=== PATIENT | female | born 1965 | race Caucasian/White ===

== ENCOUNTER → 2017-05-23 | Outpatient (CLI) | payer BC ==
[~2017-05-23] MED LIST: COLACE 100MG C100 MG PO; NORCO 5-325 TA1 EACH PO
== END ==
LOC: KOH-I 08:40
DX: R19.8 Other specified symptoms and signs involving the digestive system and abdomen (principal)
CPT/HCPCS: 74000

== ENCOUNTER → 2020-09-25 | Outpatient (CLI) | payer BC ==
[~2020-09-25] MED LIST changes: +HYDROCODON-ACE1 EAC4 PO; +ZOFRAN ODT 4 MG4 MG PO
== END ==
LOC: KOH-I 11:07
DX: R80.9 Proteinuria, unspecified (principal); N13.30 Unspecified hydronephrosis
CPT/HCPCS: 76775

== ENCOUNTER → 2020-10-08 | Outpatient (CLI) | payer BC | LOC: HEART 5 09:00 | DX: I35.1 Nonrheumatic aortic (valve) insufficiency (principal); R94.39 Abnormal result of other cardiovascular function study; R93.1 Abnormal findings on diagnostic imaging of heart and coronary circulation | CPT/HCPCS: 78452; 93306; A9502; J2785 ==

== ENCOUNTER 2020-12-09 14:21 | Emergency (ER) | payer BC ==
[~2020-12-09 14:21] MED LIST changes: -HYDROCODON-ACE1 EAC4 PO; -ZOFRAN ODT 4 MG4 MG PO
[2020-12-09 15:13] LABS: HEMOGLOBIN 11.9 gm/dl (12.3-15.3); RED BLOOD COUNT 4.39 M/UL (4.00-5.10); WHITE BLOOD COUNT 12.1 K/UL (4.5-11.0)
[2020-12-09 15:53] LABS: BUN/CREATININE RATIO 13 (0-10)
[2020-12-09 16:12] LABS: BORDETELLA PARAPERTUSSIS Not Detected (Not Detectd); BORDETELLA PERTUSSIS Not Detected (Not Detectd); CHLAMYDIA PNEUMONIAE Not Detected (Not Detectd); CORONAVIRUS HKU1 Not Detected (Not Detectd); CORONAVIRUS NL63 Not Detected (Not Detectd); CORONAVIRUS OC43 Not Detected (Not Detectd); CORONOAVIRUS 229E Not Detected (Not Detectd); HUMAN METAPNEUMOVIRUS Not Detected (Not Detectd); HUMAN RHINOVIRUS/ENTEROVIRUS Not Detected (Not Detectd); INFLUENZA A Not Detected (Not Detectd); INFLUENZA B Not Detected (Not Detectd); MYCOPLASMA PNEUMONIAE Not Detected (Not Detectd); PARAINFLUENZA VIRUS 1 Not Detected (Not Detectd); PARAINFLUENZA VIRUS 2 Not Detected (Not Detectd); PARAINFLUENZA VIRUS 3 Not Detected (Not Detectd); PARAINFLUENZA VIRUS 4 Not Detected (Not Detectd); RESPIRATORY SYNCYTIAL VIRUS Not Detected (Not Detectd)
[2020-12-09 17:32] LABS: SARS-CoV-2 NOT DETECTED (Not Detectd)
[2020-12-09] MEDS ORDERED: ZOFRAN ODT 4 MG4 MG PO (17:38)
[2020-12-09] MEDS ORDERED: HYDROCODON-ACE1 EAC4 PO (17:38)
== END 2020-12-09 17:50 | disposition home or self-care (01) ==
LOC: ER1 14:21
PROVIDERS: Family Medicine
DX: N13.6 Pyonephrosis (principal); E87.6 Hypokalemia; E11.9 Type 2 diabetes mellitus without complications; I10 Essential (primary) hypertension
CPT/HCPCS: 71045; 80053; 81001; 83605; 83690; 85025; 87040; 87086; 87633; 96374; 99284; J2405; J7030

== ENCOUNTER → 2022-02-16 | Outpatient (CLI) | payer BC ==
[~2022-02-16] MED LIST changes: +HYDROCODON-ACE1 EAC4 PO; +ZOFRAN ODT 4 MG4 MG PO
== END ==
LOC: US 14:30
DX: R22.1 Localized swelling, mass and lump, neck (principal)
CPT/HCPCS: 76536

== ENCOUNTER → 2022-05-04 | Outpatient (CLI) | payer BC | LOC: HEART 5 13:00 | DX: I35.1 Nonrheumatic aortic (valve) insufficiency (principal); I10 Essential (primary) hypertension; R01.1 Cardiac murmur, unspecified; R00.2 Palpitations | CPT/HCPCS: 93306 ==